=== PATIENT | female | born 1980 | race Two or more races ===

== ENCOUNTER 2018-12-10 19:59 | Emergency (ER) | payer BC ==
--- NOTE | 2018-12-10 20:02 | PDOC ---
Rapid Medical Evaluation Time Seen by Provider: 12/10/18 20:01 Medical Evaluation: 12/10/18 20:01 I have performed a brief in-person evaluation of this patient. The patient presents with a chief complaint of: per EMS, pt found passed out on [facility] train, [employer] called EMS. pt denies vomiting, denies LOC. Pertinent physical exam findings: intoxicated, agitated I have ordered the following: labs, urine The patient will proceed to the ED for further evaluation.
[2018-12-10 20:04] VITALS: BP 145/88; PULSE 118; TEMP 98; BMI 27.3
[2018-12-10] MEDS ORDERED: SODIUM CHLORIDE 1,000 ML IV STA (20:04)
--- NOTE | 2018-12-10 21:38 | PDOC ---
History of Present Illness - General Chief Complaint: Alcohol intoxication Stated Complaint: INTOX Time Seen by Provider: 12/10/18 20:01 - History of Present Illness Initial Comments: The pt 38F w/ a history of Lupus who presents by EMS after being found asleep on a bench with suspected EtOH intoxication. The patient reports having 3 margaritas today. She denies falls, trauma, or pain. Reports daily EtOH intake (approx 3 margaritas daily) Denies recent illness, 12/10/18 21:26 12/11/18 20:25 Past History - Past Medical History Allergies/Adverse Reactions: Allergies Allergy/AdvReac Type Severity Reaction Status Date / Time No Known Allergies Allergy Verified 12/10/18 20:01 COPD: No - Suicide/Smoking/Psychosocial Hx Smoking History: Never smoked Hx Alcohol Use: Yes *Physical Exam - Vital Signs Last Vital Signs Temp Pulse Resp BP Pulse Ox 98 F 118 H 18 145/88 96 12/10/18 20:02 12/10/18 20:02 12/10/18 20:02 12/10/18 20:02 12/10/18 20:02 *DC/Admit/Observation/Transfer Diagnosis at time of Disposition: ETOH abuse, Lupus Alcohol intoxication Qualifiers: Complication of substance-induced condition: uncomplicated Qualified Code(s): F10.920 - Alcohol use, unspecified with intoxication, uncomplicated - Discharge Dispostion Disposition: HOME Condition at time of disposition: Stable Decision to Admit order: No - Referrals Referrals: [facility] [Provider Group] - Patient Instructions Printed Discharge Instructions: DI for Alcohol Abuse Additional Instructions: You were seen in the Emergency Department for evaluation of alcohol intoxication. Review the handout provided at discharge. Follow up with your primary care provider. Return to the Emergency Department if you develop fevers/ chills, inability to tolerate food, chest pain, jitteriness, tremors, or any new /concerning symptoms. - Post Discharge Activity
== END 2018-12-10 22:14 | disposition home or self-care (01) ==
LOC: JER 19:59
DX: F10.120 Alcohol abuse with intoxication, uncomplicated (principal); Y90.9 Presence of alcohol in blood, level not specified; Z87.39 Personal history of other diseases of the musculoskeletal system and connective tissue
CPT/HCPCS: 99281-25